=== PATIENT | female | born 1945 | race Two or more races ===

== ENCOUNTER 2017-06-09 12:39 | Outpatient (CLI) | payer OTHER | END 2017-06-09 12:50 | disposition home or self-care (01) | LOC: MAMO-SONO 12:39 | DX: Z12.31 Encounter for screening mammogram for malignant neoplasm of breast (principal); Z87.898 Personal history of other specified conditions; N63.10 Unspecified lump in the right breast, unspecified quadrant; N63.20 Unspecified lump in the left breast, unspecified quadrant ==

== ENCOUNTER 2017-06-09 12:51 | Outpatient (CLI) | payer OTHER | END 2017-06-09 12:56 | disposition home or self-care (01) | LOC: RAD 12:51 | DX: D21.0 Benign neoplasm of connective and other soft tissue of head, face and neck (principal) ==

== ENCOUNTER 2021-06-05 09:06 | Outpatient (CLI) | payer OTHER | END 2021-06-05 09:12 | disposition home or self-care (01) | LOC: RAD 09:06 | PROVIDERS: ATTEND Internal Medicine | DX: R07.82 Intercostal pain (principal) ==

== ENCOUNTER 2022-02-19 13:07 | Outpatient (CLI) | payer OTHER | END 2022-02-19 13:09 | disposition home or self-care (01) | LOC: NUCLEAR 13:07 | PROVIDERS: ATTEND Internal Medicine | DX: M81.0 Age-related osteoporosis without current pathological fracture (principal) ==